=== PATIENT | female | born 1995 | race Caucasian/White ===

== ENCOUNTER 2018-05-01 17:37 | Outpatient (CLI) | payer OTHER | END 2018-05-01 17:38 | disposition critical access hospital (66) | LOC: EMS 17:37 | PROVIDERS: ATTEND Surgery | DX: M54.5 Low back pain (principal) | CPT/HCPCS: A0425; A0429 ==

== ENCOUNTER 2018-05-01 17:57 | Emergency (ER) | payer OTHER ==
--- NOTE | 2018-05-01 20:06 | ED Physician Documentation ---
PD HPI BACK PAIN - Stated complaint Stated Complaint: LOW BACK PX - Chief complaint Chief Complaint: Back Pain - History obtained from History obtained from: Patient - History of Present Illness Timing - onset: Enter time (12:30), Today Timing - duration: Hours Timing - details: Abrupt onset Pain level now: 8 Location: Lower, Right Quality: Pain Associated symptoms: No: Fever, Weakness, Numbness, Incontinent of urine, Unable to urinate, Incontinent of stool Improves with: Rest Worsened by: Movement Similar symptoms before: Has not had sx before Recently seen: Not recently seen - Additional information Additional information: c/o sudden onset lower back pain, worst on right. Onset was approximately 12:30 this afternoon; she had just stood up when pain came on. It is distinctly worse with movement. Denies h/o similar symptoms. RUMA, says she was unable to even stand. Took tylenol, ibuprofen without relief Review of Systems Constitutional: denies: Fever : denies: Dysuria, Frequency, Incontinent, Now EGA Musculoskeletal: reports: Back pain. denies: Neck pain Neurologic: denies: Focal weakness, Numbness PD PAST MEDICAL HISTORY - Past Medical History Past Medical History: No - Past Surgical History Past Surgical History: No - Present Medications Home Medications: Ambulatory Orders Medication Instructions Recorded Confirmed Oxycodone HCl/Acetaminophen 1 - 2 each PO Q6H PRN #14 tablet 05/01/18 [Percocet 5-325 mg Tablet] diazePAM [Valium] 5 - 10 mg PO TID PRN #15 tablet 05/01/18 - Allergies Allergies/Adverse Reactions: Allergies Allergy/AdvReac Type Severity Reaction Status Date / Time No Known Drug Allergies Allergy Verified 05/01/18 18:29 - Social History Does the pt smoke?: No Smoking Status: Never smoker Does the pt drink ETOH?: Yes ETOH Use: Wine Does the pt have substance abuse?: No - Immunizations Immunizations are current?: No Immunizations: TDAP current <10years - POLST Patient has POLST: No PD ED PE NORMAL - Vitals Vital signs reviewed: Yes - General General: Alert and oriented X 3, No acute distress (NAD at rest; appears uncomfortable with movement involving lower back), Well developed/nourished - Abdomen Abdomen: Soft, Non tender - Back Back: No CVA TTP, No spinal TTP - Derm Derm: Normal color, Warm and dry, No rash - Extremities Extremities: No edema - Neuro Neuro: No motor deficit, No sensory deficit, Other (2+/4 DTR bilateral patella. LTS intact BLE) Results - Vitals Vitals: Vital Signs - 24 hr 05/01/18 05/01/18 18:25 23:50 Temperature 36.9 C 36.3 C L Heart Rate 109 H 93 Respiratory 16 14 Rate Blood Pressure 146/86 H 140/82 H O2 Saturation 99 99 Oxygen O2 Source Room air PD MEDICAL DECISION MAKING - ED course Complexity details: re-evaluated patient, considered differential, d/w patient ED course: emergent testing, including imaging, is not indicated in this young, healthy individual with atraumatic low back pain that has no "red flags" (numbness, weakness, bowel/bladder incontinence, fever). She eventually had adequate symptoms control after vicodin, flexeril, IM dilaudid, and PO valium. She was awake and alert on reevaluation prior to discharge, in NAD at rest, and reported feeling adequate symptom relief and comfortable with d/c home Departure - Departure Disposition: 01 Home, Self Care Clinical Impression: Lumbar strain Condition: Good Instructions: ED Sprain Strain Lumbar Follow-Up: PE[facility] Ortiz [Provider Group] - Within 3 Days Prescriptions: diazePAM [Valium] 5 - 10 mg PO TID PRN #15 tablet PRN Reason: Spasms Oxycodone HCl/Acetaminophen [Percocet 5-325 mg Tablet] 1 - 2 each PO Q6H PRN #14 tablet PRN Reason: pain Discharge Date/Time: 05/01/18 23:54
[2018-05-01] MEDS ORDERED: CYCLOBENZAPRINE 10 MG TABLET PO STA (20:23)
[2018-05-01] MEDS ORDERED: HYDROcod/ACETAM 5/325 MG TABLET PO STA (20:24)
[2018-05-01] MEDS ORDERED: HYDROmorphone 1 MG/ML CARPUJECT IM STA ×2 (21:41→23:10)
[2018-05-01] MEDS ORDERED: oxyCODONE/ACET 5/325 Prepack 4 PO STA (23:10)
[2018-05-01] MEDS ORDERED: CYCLOBENZAPRINE 10 MG Prepack 2 PO PRN (23:10)
[2018-05-01] MEDS ORDERED: diazePAM 5 MG TABLET PO STA (23:10)
[2018-05-01 23:51] VITALS: BP 140/82
== END 2018-05-01 23:54 | disposition home or self-care (01) ==
LOC: ED 17:57
DX: S39.012A Strain of muscle, fascia and tendon of lower back, initial encounter (principal); X50.1XXA Overexertion from prolonged static or awkward postures, initial encounter
CPT/HCPCS: 96372; 99283; A9270; J1170